=== PATIENT | female | born 1935 | race Caucasian/White ===

== ENCOUNTER 2024-03-07 06:41 | Observation (INO) | payer MEDICARE, BC ==
[2024-03-07] MEDS ORDERED: Ropivacaine 0.5% 5 MG/ML 30 ML SDV ONE (06:59)
[2024-03-07] MEDS ORDERED: propofoL 50 ML ONE (07:00)
[2024-03-07] MEDS ORDERED: Tranexamic Acid IN NACL,ISO-OS 1,000 MG in Premix Bag 1 BAG IV SCH (07:00)
[2024-03-07] MEDS ORDERED: Ropivacaine 49.25 ML, Ketorolac 30 MG, EPINEPHrine 0.5 MG, cloNIDine 80 MCG in Sodium C... INJECT SCH (07:00)
[2024-03-07] MEDS ORDERED: Lidocaine 2% 5 ML SDV ONE (07:02)
[2024-03-07] MEDS ORDERED: dexmedeTOMIDine HCl 200 MCG/2 ML SDV ONE (07:03)
[2024-03-07] MEDS ORDERED: Water For Injection, Sterile 20 ML ONE (07:03)
[2024-03-07] MEDS: Lactated Ringers 1,000 ML IV SCH (07:05)
[2024-03-07] MEDS ORDERED: fentaNYL 100 MCG/2 ML SDV ONE (07:09)
[2024-03-07] MEDS ORDERED: Midazolam 1 MG/ML 2 ML SDV ONE (07:09)
[2024-03-07] MEDS: Famotidine 20 MG/2 ML SDV IVPUSH SCH (07:10)
[2024-03-07] MEDS ORDERED: fentaNYL 50 MCG/ML SDV IVPUSH PRN (07:46)
[2024-03-07] MEDS ORDERED: HYDROmorphone 1 MG/ML Syringe IVPUSH PRN (07:46)
[2024-03-07] MEDS ORDERED: Ondansetron 4 MG/2 ML SDV IVPUSH PRN (07:46)
[2024-03-07] MEDS ORDERED: Metoclopramide 10 MG/2 ML SDV IVPUSH PRN (07:46)
[2024-03-07] MEDS ORDERED: Albuterol 0.083% 2.5 MG/3 ML Neb Soln NEB PRN (07:46)
[2024-03-07] MEDS ORDERED: Phenylephrine HCl In 0.9% NaCl 1 MG/10 ML Syringe IVPUSH PRN (07:46)
[2024-03-07] MEDS ORDERED: Naloxone 0.4 MG/ML SDV IVPUSH PRN (07:46)
[2024-03-07] MEDS ORDERED: Tranexamic Acid 1,000 MG/10 ML Vial ONE (08:22)
[2024-03-07] MEDS ORDERED: ePHEDrine 50 MG/ML SDV ONE (08:52)
[2024-03-07] MEDS ORDERED: Ondansetron 4 MG/2 ML SDV ONE (10:10)
[2024-03-07] MEDS ORDERED: Sodium Chloride 0.9% 10 ML Syringe FLUSH PRN (10:38)
[2024-03-07] MEDS ORDERED: HYDROmorphone 2 MG/ML Syringe IVPUSH PRN (10:38)
[2024-03-07] MEDS ORDERED: Sodium Chloride 0.9% 2.5 ML Syringe FLUSH PRN (10:38)
[2024-03-07] MEDS ORDERED: oxyCODONE 5 MG Tab PO PRN (10:38)
[2024-03-07] MEDS ORDERED: diphenhydrAMINE 25 MG Cap PO PRN (10:38)
[2024-03-07 12:29] LABS: BASOPHILS ABSOLUTE AUTO 0.08 K/uL (0.00-0.20); BASOPHILS PERCENT AUTO 1.1 % (0.0-1.0); EOSINOPHILS ABSOLUTE AUTO 0.11 K/uL (0.00-0.45); EOSINOPHILS PERCENT AUTO 1.5 % (0.0-6.0); HEMATOCRIT 28.4 % (37.0-47.0); HEMOGLOBIN 9.5 g/dL (12.0-16.0); IMMATURE GRAN ABSOLUTE AUTO 0.03 K/uL (0.00-0.05); IMMATURE GRAN PERCENT AUTO 0.4 % (0.0-0.4); LYMPHOCYTES ABSOLUTE AUTO 1.87 K/uL (1.00-4.80); LYMPHOCYTES PERCENT AUTO 25.5 % (24.0-44.0); MEAN CORPUSCULAR HEMOGLOBIN 31.6 pg (28.0-32.0); MEAN CORPUSCULAR HGB CONC 33.5 g/dL (32.0-36.0); MEAN CORPUSCULAR VOLUME 94.4 fL (83.0-99.0); MEAN PLATELET VOLUME 8.9 fL (9.4-12.3); MONOCYTES ABSOLUTE AUTO 0.65 K/uL (0.00-0.80); MONOCYTES PERCENT AUTO 8.9 % (0.0-8.0); NEUTROPHILS PERCENT AUTO 62.6 % (41.0-71.0); PLATELET COUNT,PLT 242 K/uL (150-400); RED BLOOD CELL COUNT 3.01 M/uL (4.10-5.30); WHITE BLOOD CELL COUNT,WBC 7.34 K/uL (3.9-11.3)
[2024-03-07 12:55] LABS: CALCIUM 9.1 mg/dL (8.5-10.1); CARBON DIOXIDE,CO2 29.3 mmol/L (21.0-32.0); CREATININE 0.8 mg/dL (0.6-1.0); EST CRCL DRUG DOSING (CG) 41.17 mL/min; MAGNESIUM 1.6 mg/dL (1.8-2.4); POTASSIUM,K 4.3 mmol/L (3.5-5.1)
[2024-03-07] MEDS ORDERED: Sodium Chloride 0.65% Nasal Spray 45 ML Bottle NAS PRN (13:42)
[2024-03-07] MEDS: Acetaminophen 325 MG Tab PO SCH (14:07)
[2024-03-07] MEDS: Magnesium Sulfate/Water Premix 2 GM in Premix Bag 1 BAG IV ONE (14:16)
[2024-03-07] MEDS: Famotidine 20 MG/2 ML SDV ONE (17:05)
[2024-03-07] MEDS: ceFAZolin 2 GM in Sodium Chloride 0.9% 50 ML IV SCH ×2 (17:12→17:41)
[2024-03-07] MEDS: Aspirin 325 MG Tab PO SCH (18:34)
[2024-03-07] MEDS: Morphine 2 MG/ML SYRINGE IVPUSH PRN (20:31)
[2024-03-07] MEDS: Docusate Sodium 100 MG Cap PO SCH (20:31)
[2024-03-08] MEDS: traMADol 50 MG Tab PO PRN (00:06)
[2024-03-08] MEDS: ceFAZolin 2 GM in Sodium Chloride 0.9% 50 ML IV SCH (00:08)
[2024-03-08] MEDS: Ondansetron 4 MG/2 ML SDV IVPUSH PRN (06:22)
[2024-03-08] MEDS: Levothyroxine 112 MCG Tab PO SCH (06:26)
[2024-03-08 06:29] LABS: HEMATOCRIT 26.6 % (37.0-47.0); HEMOGLOBIN 8.7 g/dL (12.0-16.0)
[2024-03-08 06:46] LABS: CALCIUM 8.4 mg/dL (8.5-10.1); CARBON DIOXIDE,CO2 28.8 mmol/L (21.0-32.0); CREATININE 0.9 mg/dL (0.6-1.0); EST CRCL DRUG DOSING (CG) 36.59 mL/min; MAGNESIUM 1.9 mg/dL (1.8-2.4); POTASSIUM,K 4.1 mmol/L (3.5-5.1)
[2024-03-08] MEDS: Polyethylene Glycol 3350 Powder 17 GM Packet PO SCH (08:52)
[2024-03-08] MEDS ORDERED: Calcium Carbonate 500 MG Tab.Chew PO PRN (13:03)
[2024-03-08] MEDS ORDERED: traMADol 50 MG Tab PO PRN ×2 (13:32)
[2024-03-08] MEDS ORDERED: oxyCODONE 5 MG Tab PO PRN ×2 (13:35)
[2024-03-08] MEDS: Pantoprazole 40 MG in Sodium Chloride 0.9% 10 ML IVPUSH ONE (13:59)
[2024-03-09] MEDS ORDERED: Pantoprazole 40 MG Tab.CR PO SCH (07:30)
== END 2024-03-08 16:00 | disposition home or self-care (01) ==
LOC: MW.SDS 06:41 → MW.MS 11:26
PROVIDERS: ADMIT Orthopaedic Surgery; ATTEND Orthopaedic Surgery
DX: M17.12 Unilateral primary osteoarthritis, left knee (principal); E03.9 Hypothyroidism, unspecified; I25.10 Atherosclerotic heart disease of native coronary artery without angina pectoris; I11.0 Hypertensive heart disease with heart failure; I50.9 Heart failure, unspecified; Z79.82 Long term (current) use of aspirin; Z79.899 Other long term (current) drug therapy; Z79.890 Hormone replacement therapy; Z87.891 Personal history of nicotine dependence
CPT/HCPCS: 27447; 36415; 64447; 73560; 80048; 83735; 85014; 85018; 85025; 86850; 86900; 86901; 97162; 97530; A9270; J0171; J0690; J0735; J1885; J2250; J2270; J2405; J2470; J2704; J2795; J3010; J3475; J3490; J7120; 01402; 64488; 96374; C1776; G0378

== ENCOUNTER 2024-11-09 09:47 | Emergency (ER) | payer MEDICARE, BC ==
[2024-11-09 10:18] LABS: BASOPHILS ABSOLUTE AUTO 0.02 K/uL (0.00-0.20); BASOPHILS PERCENT AUTO 0.2 % (0.0-1.0); EOSINOPHILS ABSOLUTE AUTO 0.01 K/uL (0.00-0.45); EOSINOPHILS PERCENT AUTO 0.1 % (0.0-6.0); HEMATOCRIT 18.3 % (37.0-47.0); HEMOGLOBIN 6.1 g/dL (12.0-16.0); IMMATURE GRAN ABSOLUTE AUTO 0.05 K/uL (0.00-0.05); IMMATURE GRAN PERCENT AUTO 0.4 % (0.0-0.4); LYMPHOCYTES ABSOLUTE AUTO 2.48 K/uL (1.00-4.80); LYMPHOCYTES PERCENT AUTO 19.7 % (24.0-44.0); MEAN CORPUSCULAR HGB CONC 33.3 g/dL (32.0-36.0); MEAN CORPUSCULAR VOLUME 92.9 fL (83.0-99.0); MEAN PLATELET VOLUME 8.8 fL (9.4-12.3); MONOCYTES ABSOLUTE AUTO 0.55 K/uL (0.00-0.80); MONOCYTES PERCENT AUTO 4.4 % (0.0-8.0); NEUTROPHILS ABSOLUTE AUTO 9.51 K/uL (1.80-7.70); NEUTROPHILS PERCENT AUTO 75.2 % (41.0-71.0); PLATELET COUNT,PLT 335 K/uL (150-400); RED BLOOD CELL COUNT 1.97 M/uL (4.10-5.30); WHITE BLOOD CELL COUNT,WBC 12.62 K/uL (3.9-11.3)
[2024-11-09] MEDS: Pantoprazole 80 MG in Sodium Chloride 0.9% 10 ML IVPUSH ONE (10:22)
[2024-11-09] MEDS: Sodium Chloride 0.9% 1,000 ML IV ONE (10:22)
[2024-11-09 10:33] LABS: INR 1.13 (0.86-1.11); PTT,PARTIAL THROMBOPLSTIN TIME 24.5 SEC (23.9-30.7)
[2024-11-09 10:42] LABS: A/G RATIO 0.9 (0.9-1.6); ACETAMINOPHEN < 2.0 ug/mL; ALANINE AMINOTRANSFERASE,ALT 27 IU/L (14-63); ALBUMIN 2.7 g/dL (3.4-5.0); ALKALINE PHOSPHATASE 74 U/L (46-116); ASPARTATE AMNIOTRANSFERASE,AST 23 IU/L (15-37); BILIRUBIN TOTAL 0.3 mg/dL (0.2-1.0); BLOOD UREA NITROGEN,BUN 57 mg/dL (7.0-18.0); CALCIUM 8.7 mg/dL (8.5-10.1); CARBON DIOXIDE,CO2 23.1 mmol/L (21.0-32.0); CHLORIDE,CL 103 mmol/L (98-107); CREATININE 1.2 mg/dL (0.6-1.0); GLUCOSE RANDOM 163 mg/dL (74-106); LIPASE 34 U/L (16-77); POTASSIUM,K 4.4 mmol/L (3.5-5.1); PROTEIN TOTAL,TP 5.7 g/dL (6.4-8.2); SALICYLATE 1.7 mg/dL (0.0-20.0); SODIUM,NA 138 mmol/L (136-145)
[2024-11-09 10:53] LABS: ESTIMATED GFR 43 mL/min (>60)
[2024-11-09] MEDS: Iopamidol 755 MG/ML 500 ML Multipack Bottle IVPUSH STA (11:47)
[2024-11-09 11:59] LABS: APPEARANCE,URINE CLEAR; BILIRUBIN,URINE NEGATIVE (NEGATIVE); COLOR,URINE YELLOW; GLUCOSE,URINE NEGATIVE (NEGATIVE); KETONES,URINE NEGATIVE (NEGATIVE); LEUKOCYTE ESTERASE,URINE NEGATIVE (NEGATIVE); NITRITE,URINE NEGATIVE (NEGATIVE); OCCULT BLOOD,URINE NEGATIVE (NEGATIVE); PH,URINE 5.5 (5.0-8.0); PROTEIN,URINE NEGATIVE (NEGATIVE); UROBILINOGEN,URINE 0.2 EU/dL (<2.0)
[2024-11-09 12:08] LABS: AMPHETAMINES SCREEN, URINE NEGATIVE (CUTOFF=500); BARBITURATE SCREEN,URINE NEGATIVE (CUTOFF=200); BENZODIAZEPINES SCREEN,URINE NEGATIVE (CUTOFF=150); BUPRENORPHINE SCREEN,URINE NEGATIVE (CUTOFF=10); METHADONE SCREEN, URINE NEGATIVE (CUTOFF=200); METHAMPHETAMINES SCREEN, URINE NEGATIVE (CUTOFF=500); OXYCODONE SCREEN,URINE NEGATIVE (CUT0FF=100); PCP SCREEN,URINE NEGATIVE (CUTOFF=25); THC SCREEN,URINE 20 NG/ML NEGATIVE (CUTOFF=50)
[2024-11-09] MEDS: cefTRIAXone 2 GM in Water For Injection, Sterile 20 ML IVPUSH ONE (13:04)
[2024-11-09] MEDS: metroNIDAZOLE/Normal Saline 500 MG in Premix Bag 1 BAG IV ONE (13:06)
[2024-11-09] MEDS: Famotidine 20 MG/2 ML SDV IVPUSH STA (13:40)
== END 2024-11-09 14:06 ==
LOC: MW.ED 09:47
DX: K92.2 Gastrointestinal hemorrhage, unspecified (principal); I95.9 Hypotension, unspecified; J18.9 Pneumonia, unspecified organism; I10 Essential (primary) hypertension; E03.9 Hypothyroidism, unspecified; Z75.3 Unavailability and inaccessibility of health-care facilities; Z79.82 Long term (current) use of aspirin; Z79.890 Hormone replacement therapy
CPT/HCPCS: 36415; 36430; 51702; 70450; 71260; 72125; 74178; 80053; 80143; 80179; 80305; 81003; 83605; 83690; 85025; 85610; 85730; 86850; 86900; 86901; 86920; 87040; 93005; 96361; 96365; 96375; 99285; J0696; J1836; J2470; J7030; P9016; Q9967; 93010